=== PATIENT | female | born 1985 | race African-American/Black ===

== ENCOUNTER 2021-01-31 20:22 | Emergency (ER) | payer OTHER ==
[~2021-01-31] VITALS: Ht 172.7 cm; Wt 136.1 kg
[2021-02-01] MEDS ORDERED: NAPROXEN500 MG PO (04:48)
== END 2021-02-01 06:45 | disposition home or self-care (01) ==
LOC: ER 20:22
DX: R10.11 Right upper quadrant pain (principal)